=== PATIENT | female | born 1970 | race Caucasian/White ===

== ENCOUNTER 2016-06-24 02:05 | Emergency (ER) | payer OTHER ==
[~2016-06-24] VITALS: Ht 165.1 cm; Wt 106.0 kg
[~2016-06-24 02:05] MED LIST: PREN1TAB49 PO
[2016-06-24 02:10] VITALS: Ht 165.1 cm; Wt 106.0 kg
--- NOTE | 2016-06-24 04:34 | ERD ---
ER Documentation Chief Complaint Date/Time DATE: 06/24/16 TIME: 04:29 Chief Complaint on and off nosebleeding x 4 days, no active nosebleeding in intake HPI 45-year-old female presents with chief complaint of intermittent epistaxis 4 days. Patient states that while she was at work tonight she had 2 episodes of epistaxis which resolved after applying heavy pressure to the bridge of her nose for over 20 minutes, however she states that she believes she lost a lot of blood. She denies having history of epistaxis before in the past. She notes that she saw her PCP on who ordered blood work, however she said that she cannot get the results for another 2 weeks. She denies history of hypertension. She denies seasonal allergies or rhinorrhea. She says that she has recently begun working a new department, and her PCP told her she may be having an allergy to chemical products that she uses. She has been taking loratadine without relief of symptoms. ROS All systems reviewed and are negative except as per history of present illness. Medications Home Meds Reported Medications Vits W-Ca,Fe,Fa(<1MG) () 1 Tab Tablet, 1 TAB PO DAILY 03/11/12 Allergies Allergies: Coded Allergies: No Known Allergies (Verified Allergy, Mild, 06/24/16) PMhx/Soc Medical and Surgical Hx: pt denies Medical Hx, pt denies Surgical Hx History of Surgery: No Anesthesia Reaction: No Hx Neurological Disorder: No Hx Respiratory Disorders: No Hx Cardiac Disorders: No Hx Psychiatric Problems: No Hx Miscellaneous Medical Probl: Yes (BORDERLING DM, seasonal allergies) Hx Alcohol Use: No Hx Substance Use: No Hx Tobacco Use: No Smoking Status: Never smoker Physical Exam Vitals Vital Signs Date Time Temp Pulse Resp B/P Pulse Ox O2 Delivery O2 Flow Rate FiO2 06/24/16 02:10 98.7 105 20 141/81 98 Physical Exam GENERAL: Non-toxic. No apparent signs of distress. HEENT: Atraumatic. Bilateral eyes are PERRL EOM intact. Normal conjunctiva, no injection. No eyelid or lower eyelid swelling noted. Ears: Normal tympanic membrane, no erythema or bulging. No ear canal swelling. No ear discharge. Nose : Dried blood in the right nostril, no active nasal discharge or bleeding. No septal hematoma. Throat: Oropharynx normal. Tongue pink and moist. No tonsillar swelling or tonsillar exudates. No lymphadenopathy. LUNGS: Clear to auscultation. No accessory muscle use. No wheezing, no crackles. No signs or symptoms of respiratory distress. HEART: Regular rate and rhythm. No murmurs, clicks, rubs or gallops. NEURO: The patient moves all 4 extremities with 5/5 strength. Cranial nerves are grossly intact. Normal mental status for age. Good muscle tone. SKIN: There is no apparent rash, petechiae, erythema or swelling. Good skin turgor. Result Diagram: 06/24/16 0435 06/24/16 0435 Results 24 hrs Laboratory Tests Test 06/24/16 04:35 White Blood Count 10.510^3/ul Red Blood Count 4.5110^6/ul Hemoglobin 12.3g/dl Hematocrit 38.7% Mean Corpuscular Volume 85.8fl Mean Corpuscular Hemoglobin 27.3pg Mean Corpuscular Hemoglobin Concent 31.8g/dl Red Cell Distribution Width 13.9% Platelet Count 31269^3/UL Mean Platelet Volume 10.2fl Neutrophils % 64.1% Lymphocytes % 26.6% Monocytes % 7.3% Eosinophils % 1.1% Basophils % 0.4% Nucleated Red Blood Cells % 0.0/100WBC Neutrophils # 6.710^3/ul Lymphocytes # 2.810^3/ul Monocytes # 0.810^3/ul Eosinophils # 0.110^3/ul Basophils # 0.010^3/ul Nucleated Red Blood Cells # 0.010^3/ul Prothrombin Time 13.3Sec Prothrombin Time Ratio 1.0 INR International Normalized Ratio 1.01 Activated Partial Thromboplast Time 23.0Sec Sodium Level 142mmol/L Potassium Level 4.1mmol/L Chloride Level 105mmol/L Carbon Dioxide Level 28mmol/L Anion Gap 13 Blood Urea Nitrogen 17mg/dl Creatinine 0.55mg/dl Glucose Level 111mg/dl Calcium Level 9.1mg/dl Procedures/MDM Patient reports intermittent epistaxis 4 days. Says she had 2 episodes of severe epistaxis at work today, which subsided after applying heavy pressure to the bridge of her nose for several minutes. She states she had blood work done at her PCP but will not have the results for another 2 weeks. She is concerned because she believes she lost a significant amount of blood tonight. To the patient that there are several things and because of epistaxis, her doctor likely ordered labs for clotting factors and CBC to assess for anemia and coagulation disorders. I explained that I can order these labs tonight and she should have a result within an hour if she would like. Patient agreed to this. On examination she appeared to be no acute distress, displaying no signs of hypovolemia. On exam of the nose she had dried blood in the right nostril, with no active nasal discharge or bleeding. She had no septal hematoma. Awaiting results of labs prior to further management. CBC: No leukocytosis or anemia. No concern for severe blood loss. BMP: Within normal limits PT/PTT: Within normal limits, mildly decreased APTT of 23 is not likely significant. Patient has not had recurrence of epistaxis since coming to the ER. She continues to appear well and in no acute distress. She has no complaints at this time. I provided a copy of her labs for her to follow-up with her PCP. I suggested that she avoid use of NSAIDs or aspirin, as this can contribute to thinning her blood and exacerbating epistaxis. Also suggested that she check her blood pressure daily, currently her blood pressure is normal in the ER but this may also be a cause of epistaxis. In addition I suggested lubricating the nose, in the event that the epistaxis is due to dry nasal passages. At this time low suspicion for severe blood loss, septal hematoma, nasal fracture, foreign body in nostrils, ICH and infection. Patient is stable for discharge and outpatient management. Advised to follow-up with her PCP in 1-2 days. Departure Diagnosis: Primary Impression: Epistaxis Condition: Mikala Garcia PA-C Jun 24, 2016 04:34
[2016-06-24 05:01] LABS: ADD SCAN DIFF NO
[2016-06-24 05:02] LABS: BASOPHILS % 0.4 % (0.0-2.0); EOSINOPHILS # 0.1 10^3/ul (0.0-0.5); EOSINOPHILS % 1.1 % (0.0-7.0); HEMATOCRIT 38.7 % (37.0-47.0); HEMOGLOBIN 12.3 g/dl (12.0-16.0); LYMPHOCYTES # 2.8 10^3/ul (0.8-2.9); LYMPHOCYTES % 26.6 % (15.0-51.0); MEAN CORPUSCULAR HEMOGLOBIN 27.3 pg (29.0-33.0); MEAN CORPUSCULAR HGB CONC 31.8 g/dl (32.0-37.0); MEAN CORPUSCULAR VOLUME 85.8 fl (82.0-101.0); MEAN PLATELET VOLUME 10.2 fl (7.4-10.4); MONOCYTE # 0.8 10^3/ul (0.3-0.9); MONOCYTES % 7.3 % (0.0-11.0); NEUTROPHIL # 6.7 10^3/ul (1.6-7.5); NEUTROPHILS % 64.1 % (39.0-77.0); PLATELET COUNT 258 10^3/UL (140-415); RED BLOOD COUNT 4.51 10^6/ul (4.20-5.40); RED CELL DISTRIBUTION WIDTH 13.9 % (11.5-14.5); WHITE BLOOD COUNT 10.5 10^3/ul (4.8-10.8)
[2016-06-24 05:11] LABS: POTASSIUM 4.1 mmol/L (3.5-5.1)
[2016-06-24 05:14] LABS: CALCIUM 9.1 mg/dl (8.4-10.2); CREATININE 0.55 mg/dl (0.44-1.00)
[2016-06-24 05:19] LABS: INR 1.01; PROTIME 13.3 Sec (12.2-14.2)
[2016-06-24 05:41] VITALS: BP 133/75; PULSE 81; RESP 20; TEMP 98.6
[2016-06-25] MEDS ORDERED: SODI104S2 NASAL (17:12)
[2016-06-25] MEDS ORDERED: PETR5OIN3 TOP (17:13)
== END 2016-06-24 05:41 | disposition home or self-care (01) ==
LOC: FTE 02:05
DX: R04.0 Epistaxis (principal)
CPT/HCPCS: 36415; 80048; 85025; 85610; 85730; Z7502; 99283

== ENCOUNTER 2016-06-25 16:12 | Emergency (ER) | payer OTHER ==
[~2016-06-25] VITALS: Ht 172.7 cm; Wt 105.0 kg
[2016-06-25 16:40] VITALS: Ht 172.7 cm; Wt 105.0 kg
[2016-06-25] MEDS ORDERED: SODI104S2 NASAL (17:12)
[2016-06-25] MEDS ORDERED: PETR5OIN3 TOP (17:13)
--- NOTE | 2016-06-25 17:26 | ERD ---
ER Documentation Chief Complaint Date/Time DATE: 06/25/16 TIME: 17:23 Chief Complaint NOSE BLEED 1HR AGO, SENT BY PCP HPI This is a 45-year-old female presents to the ER because she developed a nosebleed an hour ago. Patient was seen here for nosebleed yesterday and she was told to follow-up with her primary care doctor. Patient went to her primary care doctor and primary care doctor sent her over here to burn veins in her nose. At this time patient does not have a nosebleed. She denies any nasal trauma. She denies any nasal pain. She denies any fevers or chills. She denies any other nasal discharge. She denies any dental pain. Denies any easy bruising or bleeding gums. ROS 12 point review of systems was done, all negative except per HPI. Medications Home Meds Active Scripts Petrolatum,White* (Vaseline*) 5 Gm Oint.pack, 1 APPLIC TOP BID for 3 Days, PACKET Prov:REHAN TRUJILLO 06/25/16 Sodium Chloride ([place]) 104 Ml [place], 1 SPRAY NASAL PRN Y for NASAL CONGESTION, #1 BOTTLE Prov:REHAN TRUJILLO 06/25/16 Reported Medications Vits W-Ca,Fe,Fa(<1MG) () 1 Tab Tablet, 1 TAB PO DAILY 03/11/12 Allergies Allergies: Coded Allergies: No Known Allergies (Verified Allergy, Mild, 06/24/16) PMhx/Soc History of Surgery: No Anesthesia Reaction: No Hx Neurological Disorder: No Hx Respiratory Disorders: No Hx Cardiac Disorders: No Hx Psychiatric Problems: No Hx Miscellaneous Medical Probl: Yes (BORDERLING DM, seasonal allergies) Hx Alcohol Use: No Hx Substance Use: No Hx Tobacco Use: No Physical Exam Vitals Vital Signs Date Time Temp Pulse Resp B/P Pulse Ox O2 Delivery O2 Flow Rate FiO2 06/25/16 16:40 97.4 96 18 173/84 98 Physical Exam GENERAL: The patient is well developed and appropriate for usual state of health , in no apparent distress. HEENT: Atraumatic. Conjunctivae are pink. Nasal nares are normal with no evidence of bleeding, polyps, septal hematoma. CHEST: Clear to auscultation bilaterally. There are no rales, wheezes or rhonchi. HEART: Regular rate and rhythm. No murmurs, clicks, rubs or gallops. NEURO: Alert and oriented. SKIN: No petechiae, no bruising. Procedures/MDM This is a 45-year-old female presents to the ER for a nosebleed which resolved. Patient was given [place] spray and Vaseline. At this time patient needs to follow up with an ENT doctor. Patient is extremely well appearing her vital signs are stable, she stable for outpatient follow-up. She is to follow-up with her primary care doctor within 1-2 days return to ER sooner symptoms worsen. My medical decision making was shared with the patient she understands and agrees with plan. Departure Diagnosis: Primary Impression: Epistaxis Condition: Stable Patient Instructions: Epistaxis (Adult) Additional Instructions: Call your primary care doctor TOMORROW for an appointment during the next 1-2 days.See the doctor sooner or return here if your condition worsens before your appointment time. REHAN TRUJILLO Jun 25, 2016 17:26
== END 2016-06-25 17:15 | disposition home or self-care (01) ==
LOC: E/R 16:12
DX: R04.0 Epistaxis (principal)
CPT/HCPCS: 99283

== ENCOUNTER 2017-02-14 03:04 | Emergency (ER) | payer OTHER ==
[~2017-02-14] VITALS: Ht 162.6 cm; Wt 104.2 kg
[~2017-02-14 03:04] MED LIST changes: +PETR5OIN3 TOP; +SODI104S2 NASAL
[2017-02-14 03:08] VITALS: Ht 162.6 cm; Wt 104.2 kg
--- NOTE | 2017-02-14 04:32 | ERD ---
ER Documentation Chief Complaint Chief Complaint cough x 2 days, sore throat HPI 46-year-old female who came into the emergency department with her 4-year-old daughter. Patient complains of cough and throat pain for 2 days. Denies headache, dizziness, changes in vision, neck pain, throat pain, difficulty swallowing, neck stiffness, shoulder pain, loss of appetite, difficulty breathing when lying flat, chest pain, back pain, abdomen, nausea, vomiting, constipation, diarrhea, loss of bowel bladder control, or possibility of being , urinary symptoms, trauma, injury, falls, recent long travel, recent travel, recent antibiotic use in the last 3 months, fever, chills, difficulty walking. No past medical history. No surgical history. Her last menstrual period was last week. A0. ROS All systems reviewed and are negative except as per history of present illness. Medications Home Meds Active Scripts Ibuprofen* (Motrin*) 800 Mg Tab, 800 MG PO Q8 Y for PAIN AND OR ELEVATED TEMP, # 30 TAB Prov:MARGARITA SALAZAR 02/14/17 Acetaminophen* (Tylophen*) 500 Mg Capsule, 1 CAP PO Q6H Y for PAIN AND OR ELEVATED TEMP, #20 CAP Prov:MARGARITA SALAZAR F 02/14/17 Amoxicillin/Potassium Clav (Amox-Clav 875-125 mg Tablet) 875-125 mg Tab, 1 TAB PO BID for 7 Days, #14 TAB Prov:NADEGEILAHEIKE HENDRIXAR F 02/14/17 Albuterol Sulfate* (Proair HFA*) 8.5 Gm Hfa.aer.ad, 2 PUFF INH Q4, #1 INHALER Prov:MARGARITA SALAZAR 02/14/17 Petrolatum,White* (Vaseline*) 5 Gm Oint.pack, 1 APPLIC TOP BID for 3 Days, PACKET Prov:REHAN TRUJILLO 06/25/16 Sodium Chloride ([place]) 104 Ml [place], 1 SPRAY NASAL PRN Y for NASAL CONGESTION, #1 BOTTLE Prov:REHAN TRUJILLO 06/25/16 Reported Medications Vits W-Ca,Fe,Fa(<1MG) () 1 Tab Tablet, 1 TAB PO DAILY 03/11/12 Allergies Allergies: Coded Allergies: No Known Allergies (Verified Allergy, Mild, 06/24/16) PMhx/Soc Medical and Surgical Hx: pt denies Surgical Hx History of Surgery: No Anesthesia Reaction: No Hx Neurological Disorder: No Hx Respiratory Disorders: No Hx Cardiac Disorders: No Hx Psychiatric Problems: No Hx Miscellaneous Medical Probl: Yes (BORDERLING DM, seasonal allergies) Hx Alcohol Use: No Hx Substance Use: No Hx Tobacco Use: No Physical Exam Vitals Vital Signs Date Time Temp Pulse Resp B/P Pulse Ox O2 Delivery O2 Flow Rate FiO2 02/14/17 05:00 97.8 84 18 127/61 98 Room Air 02/14/17 03:08 97.8 89 20 168/79 98 Physical Exam Const: Well-appearing. Not in acute respiratory distress. Head: Atraumatic Eyes: Normal Conjunctiva. No pain in eye movement. PERRLA. ENT: Normal External Ears, Nose and Mouth. Bilateral ears: Unremarkable. Throat: Uvula is midline not displaced. Tonsils are +2 bilaterally with mild redness but no exudates. Tolerating secretions. Patent airway. Speaks full and clear sentences. Neck: Full range of motion..~ No meningismus. No signs of meningeal irritation. No neck stiffness. Resp: Clear to auscultation bilaterally Cardio: Regular rate and rhythm, no murmurs Abd: Soft, non tender, non distended. Normal bowel sounds Skin: No petechiae or rashes Back: No midline or flank tenderness Ext: No cyanosis, or edema Neur: Awake and alert 4. Romberg test is negative. Psych: Normal Mood and Affect Procedures/MDM Differential: I have low suspicion for severe or serious bacterial infection, meningitis, mastoiditis, peritonsillar abscess, pneumonia due to patient's physical exam and that patient is well-appearing, vital signs are normal. Final diagnosis: Pharyngitis. Prescription: Augmentin. Tylenol. Motrin. Follow-up with PCP in the next 3-4 days. Come back here in the emergency department for any new symptoms or any worsening of symptoms. All questions and concerns are answered. Patient verbalized understanding and agreed with the plan of care. Hemodynamically stable on discharge. Departure Diagnosis: Primary Impression: Cough Additional Impressions: Bronchitis Pharyngitis Condition: Stable Additional Instructions: Follow-up with PCP in the next 3-4 days. Come back here in the emergency department for any new symptoms or any worsening of symptoms. All questions and concerns are answered. Patient verbalized understanding and agreed with the plan of care. MARGARITA SALAZAR Feb 14, 2017 04:32
[2017-02-14] MEDS ORDERED: AMOX1TAB10 PO (04:34)
[2017-02-14] MEDS ORDERED: ALBU8.5H3 INH (04:34)
[2017-02-14] MEDS ORDERED: ACET500C5 PO (04:34)
[2017-02-14] MEDS ORDERED: IBUP800T25 PO (04:35)
[2017-02-14 05:00] VITALS: BP 127/61; PULSE 84; RESP 18; TEMP 97.8
== END 2017-02-14 04:55 | disposition home or self-care (01) ==
LOC: FTE 03:04
DX: J20.9 Acute bronchitis, unspecified (principal); J02.9 Acute pharyngitis, unspecified
CPT/HCPCS: 99284